=== PATIENT | male | born 1980 | race Caucasian/White ===

== ENCOUNTER 2022-07-25 04:00 | Emergency (ER) | payer SELFPAY ==
[~2022-07-25] VITALS: Ht 170.2 cm; Wt 63.5 kg
[2022-07-25 04:00] VITALS: BP 120/90
--- NOTE | 2022-07-25 04:05 | NUR ---
PT [facility] BLS TO ER BED 09.
--- NOTE | 2022-07-25 04:22 | NUR ---
Patient lying in bed, A/Ox4, chest rise and fall symmetrical, no s/s of distress
--- NOTE | 2022-07-25 04:47 | NUR ---
SUZIE VICTORIA ASSESSING PT.
[2022-07-25] MEDS ORDERED: ATA25 PO (05:08)
[2022-07-25 06:51] VITALS: BP 137/100
--- NOTE | 2022-07-25 06:53 | NUR ---
Patient lying in bed, A/Ox4, chest rise and fall symmetrical, no s/s of distress
--- NOTE | 2022-07-25 07:37 | NUR ---
Received report from MARCELLA Vincent. Assumed care at this time.
--- NOTE | 2022-07-25 07:40 | NUR ---
Change of shift report given to AM shift nurse Gustavo NARANJO. AM shift nurse Gustavo RN verbalized understanding of report, no further questions.
--- NOTE | 2022-07-25 08:13 | NUR ---
PT OFFERED D/C PAPERWORK, A MEAL AND A HOMELESS RESOURCE PACKET. PT REFUSED TO TAKE D/C PAPERS AND RESOURCE PACKET.
== END 2022-07-25 08:13 | disposition home or self-care (01) ==
LOC: MED 04:00
DX: F41.9 Anxiety disorder, unspecified (principal); F17.200 Nicotine dependence, unspecified, uncomplicated; Z72.89 Other problems related to lifestyle; Z98.890 Other specified postprocedural states
CPT/HCPCS: 99283